=== PATIENT | male | born 2000 | race Caucasian/White ===

== ENCOUNTER 2021-12-20 16:54 | Emergency (ER) | payer BC, SELFPAY ==
--- NOTE | 2021-12-20 16:55 | ED.MALEGU ---
HPI - Male Genitourinary General Chief complaint: Urogenital-Male Stated complaint: LUMP ON TESTICLE Time Seen by Provider: 12/20/21 16:55 Source: patient Mode of arrival: ambulatory Limitations: no limitations History of Present Illness HPI Narrative: Mr. Calloway is a 20-year-old male patient presenting to the clinic today with complaints of a lump on his testicle. He reports he first noticed this this morning. He denies any pain or penile discharge. He denies any blood in his semen when he ejaculates. He denies having any painful intercourse. He also reports that he has been having urinary urgency for the past 2 weeks. He denies any dysuria or incomplete emptying of his bladder. Related Data Home Medications Medication Instructions Recorded Confirmed No Home Medications 12/20/21 12/20/21 Allergies Allergy/AdvReac Type Severity Reaction Status Date / Time No Known Allergies Allergy Verified 12/20/21 17:05 Review of Systems Review of Systems: Pertinent positives per HPI. Patient denies any fever, chills, rash, headache, visual changes, dizziness, cough, runny nose, sore throat, shortness of breath, chest pain, palpitations, nausea, vomiting, diarrhea, constipation, abdominal pain, or any urinary issues. PMFSH Comments At the time of my signature, I reviewed and agree with the nursing past medical, surgical, social, and family history. There is no relevant family history pertinent to the patient complaint. Exam Narrative: General: Well-developed, well nourished, in no apparent distress. Head: Normocephalic, atraumatic. Cardio: Regular rate and rhythm, s1 and s2 normal, no murmur appreciated. Resp: Clear to auscultation bilaterally, no rhonchi, rales, wheezing or rubs. Abdomen: Soft, pliable, bowel sounds present in all quadrants, non-tender to palpation, no organomegly, no CVAT tenderness. : Normal circumcised male without corneal adhesions, no lesion or mass noted to the penis, no mass or lesions visualized on scrotum, bilateral testes descended without palpable masses Course Course Emergency Course: Portions of this record may have been created with voice recognition software. Level of Care: Express Care Visit Vital Signs Vital signs: Vital signs reviewed MDM - Male Genitourinary MDM Narrative Medical decision making narrative: At the time of visit patient is resting comfortably on the exam table. Mass that the patient was feeling appears to be the epididymis, the epididymis on the other testicle was palpated and the patient noted that it did feel the same. He denies any pain with palpation. No other masses were felt within the scrotum. UA was complained due to the complaint of urinary urgency and it was normal in the clinic today. Supportive measures were discussed with the patient and he voiced understanding of discharge instructions and agrees to treatment plan. Differential Diagnosis Differential diagnosis: Likely urinary tract infection, epididymitis, acute retention of urine, inguinal hernia and other (Testicle mass) Discharge Plan Discharge Clinical Impression: Urinary urgency, Normal appearance of male genitalia Patient Disposition: Home, Self-Care Condition: Stable Instructions: Antibiotic Form, Urinary Urgency and Frequency (DC) Additional Instructions: Urinalysis is normal in the clinic today The mass that you feel in your scrotum/testicle is the epididymis (normal finding). Recommending decrease the amount of caffeine to see if this helps with urinary frequency/urgency. Follow-up with the PCP in 1 week if symptoms persist or sooner if they worsen Follow-up/Referrals: UNKNOWN,DOCTOR [Non-Staff] - Time of Disposition: 17:30 Quality NIHSS Nursing Documentation ED NIHSS nursing documentation: reviewed/agree
[2021-12-20 17:02] VITALS: BP 129/78; PULSE 89; RESP 16; TEMP 37; O2SAT 100
--- NOTE | 2021-12-20 17:21 | PC.NURSE ---
EXECUTIVE ASSISTANT TO PRESIDENT EXAMINATION REPORTS THE SAME KNOT FELT IN BOTH TESTICLES BY EXECUTIVE ASSISTANT TO PRESIDENT AND PT.
== END 2021-12-20 17:30 | disposition home or self-care (01) ==
PROVIDERS: Emergency Provider Nurse Practitioner Family
DX: R39.15 Urgency of urination (principal)
CPT/HCPCS: 81003; 99202; G0463

== ENCOUNTER 2024-05-11 15:41 | Emergency (ER) | payer BC, SELFPAY ==
[2024-05-11 16:00] VITALS: BP 144/87; PULSE 68; RESP 16; TEMP 36.4; O2SAT 100
--- NOTE | 2024-05-11 17:18 | ED.GENADULT ---
HPI - General Adult General Chief complaint: Headache Stated complaint: Headache Time Seen by Provider: 05/11/24 17:18 Source: patient, RN notes reviewed and old records reviewed Mode of arrival: ambulatory Limitations: no limitations History of Present Illness HPI narrative: 23-year-old male presents to [facility] with headache described like a band around his head for one last week. Patient reports that the headache never seems to completely go away. He states that he has taken ibuprofen sporadically for the discomfort last dose yesterday.. Patient states he was sick 2 weeks ago with cold flu like symptoms but that has gone away. Patient reports no nausea or vomiting, denies any visual changes or any dizziness MD complaint: headache Onset (ago): week(s) (1) Location: head (frontal) Severity scale (1-10): 2 Quality: aching and dull Treatments prior to arrival: NSAID (last dose yesterday) Related Data Allergies Allergy/AdvReac Type Severity Reaction Status Date / Time No Known Allergies Allergy Verified 05/11/24 16:05 Review of Systems Review of Systems: CONSTITUTIONAL: Denies fever, chills, or sweats. EYES: Denies visual changes, redness, or discharge. ENT: Denies rhinorrhea, congestion, sore throat, or otalgia. CARDIOVASCULAR: Denies chest pain, palpitations, or edema. RESPIRATORY: Denies cough or dyspnea. GASTROINTESTINAL: Denies abdominal pain, nausea, vomiting, or diarrhea. GENITOURINARY: Denies dysuria or hematuria. SKIN: Denies rash or itching. MUSCULOSKELETAL: Denies back pain, joint pain, or myalgia. NEUROLOGIC: Reports headache, no numbness, or weakness, or dizziness. PSYCHIATRIC: Denies anxiety or depression. All systems reviewed & are unremarkable except as noted in HPI and below [facility] Past Medical History Medical History (Updated 05/12/24 @ 20:17 by Sonya Whalen NP) Strep pharyngitis Bronchitis Surgical History Surgical History (Updated 05/12/24 @ 20:10 by Sonya Whalen NP) H/O hand surgery surgery to right 5th finger orthopedic History of placement of ear tubes Social History Social History Smoking status: Never smoker Alcohol intake: current Alcohol use details: social Substance use type: does not use Gender identity (if verbalized by the patient): Male Comments At time of signature, agree with nursing past medical, surgical, social and family history. There is no relevant family history pertinent to the presenting complaint Exam Narrative: GENERAL: Well-appearing, well-nourished, and in no acute distress. HEAD: Normocephalic, atraumatic. EYES: PERRLA and EOMI.no nystagmus ENT: Nares clear, clear rhinorrhea or epistaxis. Mucous membranes moist.TM's normal, throat red with some tonsil enlargement, post nasal drainage noted. NECK: Supple.no lymphadenopathy CHEST: Clear to auscultation. No respiratory distress.no cough SAO2 100% on room air HEART: Regular rate and rhythm. No murmur heard. Normal peripheral pulses. ABDOMEN: Soft, nontender, nondistended, normal active bowel sounds. EXTREMITIES: Normal range of motion. No edema. SKIN: Warm, dry, no rash. NEURO: No focal deficits. Alert and oriented x3. headache pain frontal around head, cranial nerves intact no deficit, gait normal denies any dizziness. Course Course Emergency Course: Patient is aware of diagnosis, understands and agrees to treatment plan.? Anticipatory guidance given.? Patient agrees to follow-up as directed and is aware of reasons to seek care at the emergency department. Portions of this record may have been created with voice recognition software Level of Care: Express Care Visit Vital Signs Vital signs: Vital Signs Temperature 36.4 C 05/11/24 16:00 Pulse Rate 68 05/11/24 16:00 Respiratory Rate 16 05/11/24 16:00 Blood Pressure 144/87 H 05/11/24 16:00 Pulse Oximetry 100 05/11/24 16:00 Temperature 36.4 C 05/11/24 16:00 Pulse Rate 68 05/11/24 16:00 Respiratory Rate 16 05/11/24 16:00 Blood Pressure 144/87 H 05/11/24 16:00 Pulse Oximetry 100 05/11/24 16:00 Reviewed Medical Decision Making MDM Narrative Medical decision making narrative: Exam findings and imaging show no acute concerns or changes; patient is non-toxic appearing and is in no distress.? Patient is appropriate for outpatient treatment and follow-up Differential Diagnosis Differential Diagnosis: URI, sinus congestion, headache pain, allergic rhinitis,tonsillitis Medical Records Medical records reviewed: Yes I reviewed the external patient's medical records. Vital Signs Vital Signs: Vital Signs Temperature 36.4 C 05/11/24 16:00 Pulse Rate 68 05/11/24 16:00 Respiratory Rate 16 05/11/24 16:00 Blood Pressure 144/87 H 05/11/24 16:00 Pulse Oximetry 100 05/11/24 16:00 Temperature 36.4 C 05/11/24 16:00 Pulse Rate 68 05/11/24 16:00 Respiratory Rate 16 05/11/24 16:00 Blood Pressure 144/87 H 05/11/24 16:00 Pulse Oximetry 100 05/11/24 16:00 reviewed Lab Data Lab results reviewed: Yes I reviewed the patient's lab results. Lab results narrative: strep screen negative, culture sent Labs: Lab Results 05/11/24 Range/Units 17:40 POC Grp A Strep Screen Negative (Negative) Critical Care Time Critical Care Time Critical Care Time: No Discharge Plan Discharge Clinical Impression: Headache Qualifiers: Headache type: unspecified Headache chronicity pattern: acute headache Intractability: not intractable Qualified Code(s): R51.9 - Headache, unspecified Patient Disposition: Home, Self-Care Condition: Stable Instructions: Antibiotic Form, Acute Headache (ED) Additional Instructions: Increase fluids especially juices and water [id number] cough and cold medicine of your choice for your symptoms Zyrtec Claritin or Sylvia daily include Coricidin brand decongestant Steroids as directed--take with food heat to the face 20-30 minutes 4-6 times a day for pain Salt water gargles, throat lozenges or throat sprays as desired take Tylenol or ibuprofen for your headache pain, keep diary of your headaches when, what symptoms, what you have eaten or precipitating events If your symptoms persist, change or worsen significantly before you can contact your personal physician then please, without delay, go to the emergency department for further evaluation. Follow-up with PCP in 7-10 days or sooner if needed Follow up with PCP soon in regards to your blood pressure which is elevated above threshold for referral. Blood pressure above 120/80 may indicate pre-hypertension. 144/87 Patient Language: Hungarian Prescriptions: New methylprednisolone [Medrol (Dion)] 4 mg tablets,dose pack See Rx Instructions .ROUTE .COMPLEX Qty: 21 0RF Rx Instructions: orally per package directions start in am Follow-up/Referrals: PHYSICIAN,JACKET CHANGER [Primary Care Provider] - Time of Disposition: 17:47 Quality [place] Coma Scale Eyes: Open Verbal: Oriented and Alert Motor: Follows Commands [place] Coma Total Score: 15
[2024-05-11 17:43] LABS: EDSTREPNEGPOS1 Negative (Negative)
== END 2024-05-11 17:53 | disposition home or self-care (01) ==
PROVIDERS: Emergency Provider Registered Nurse
DX: R51.9 Headache, unspecified (principal)
CPT/HCPCS: 87081; 87880; 99213; G0463